=== PATIENT | female | born 1990 | race American Indian/Alaskan Native ===

== ENCOUNTER 2019-02-15 20:36 | Emergency (ER) | payer OTHER ==
--- NOTE | 2019-02-15 21:52 | Event Note ---
ED Screening Note Date of service: 02/15/19 Time: 21:51 ED Screening Note: 28 y o presents with body aches, coughing and fever x 2 days son here with similar symptoms This initial assessment/diagnostic orders/clinical plan/treatment(s) is/are subject to change based on patients health status, clinical progression and re- assessment by fellow clinical providers in the ED. Further treatment and workup at subsequent clinical providers discretion. Patient/guardian urged not to elope from the ED as their condition may be serious if not clinically assessed and managed. Initial orders include:
--- NOTE | 2019-02-16 00:03 | Emergency Department Report ---
- General Chief Complaint: Upper Respiratory Infection Stated Complaint: FLU SX Time Seen by Provider: 02/15/19 23:18 Source: patient Mode of arrival: Ambulatory Limitations: No Limitations - History of Present Illness Initial Comments: This is a pleasant 28-year-old female presents to emergency department with chief complaint of generalized body aches, fever, cough, sore throat, nasal congestion that started today. Patient reports accident temperature is 99.3. She reports 2 episodes of posttussive vomiting. She denies any bloody or bilious vomiting. She denies any known past medical history, current medications known allergies to medications. She has her children with her who has similar symptoms. She rates the severity of her pain is 9 out of 10 described as aching. MD Complaint: fever, cough, sore throat Severity: moderate Severity scale (0 -10): 9 Associated Symptoms: denies other symptoms, fever, myalgias, rhinorrhea, nasal congestion, sore throat, cough, vomiting. denies: diaphoresis, headache, stiff neck, shortness of breath, abdominal pain, nausea, diarrhea, dysuria, rash, confusion, right sweats, weight loss, epistaxis, hoarseness - Related Data Previous Rx's Medication Instructions Recorded Last Taken Type Oseltamivir [Tamiflu] 75 mg PO BID #10 cap 02/16/19 Unknown Rx Allergies Allergy/AdvReac Type Severity Reaction Status Date / Time No Known Allergies Allergy Unverified 02/15/19 21:19 ED Review of Systems ROS: Stated complaint: FLU SX Other details as noted in HPI Comment: All other systems reviewed and negative Constitutional: fever, malaise. denies: chills Eyes: denies: eye pain, eye discharge, vision change ENT: as per HPI, congestion. denies: ear pain, throat pain Respiratory: cough. denies: shortness of breath, wheezing Cardiovascular: denies: chest pain, palpitations Endocrine: no symptoms reported Gastrointestinal: vomiting. denies: abdominal pain, nausea, diarrhea Genitourinary: denies: urgency, dysuria, discharge Musculoskeletal: denies: back pain, joint swelling, arthralgia Skin: denies: rash, lesions Neurological: denies: headache, weakness, paresthesias Psychiatric: denies: anxiety, depression Hematological/Lymphatic: denies: easy bleeding, easy bruising ED Past Medical Hx - Past Medical History Previous Medical History?: No - Surgical History Past Surgical History?: Yes Additional Surgical History: - Family History Family history: no significant - Social History Smoking Status: Never Smoker Substance Use Type: None - Medications Home Medications: Home Medications Medication Instructions Recorded Confirmed Last Taken Type Oseltamivir [Tamiflu] 75 mg PO BID #10 cap 02/16/19 Unknown Rx ED Physical Exam - General Limitations: No Limitations General appearance: alert, in no apparent distress - Head Head exam: Present: atraumatic, normocephalic - Eye Eye exam: Present: normal appearance, PERRL, EOMI - ENT ENT exam: Present: normal exam, normal orophraynx, mucous membranes moist, TM's normal bilaterally, other (clear rhinorrhea) - Neck Neck exam: Present: normal inspection, full ROM. Absent: meningismus (negative kerning and presents), lymphadenopathy - Respiratory Respiratory exam: Present: normal lung sounds bilaterally. Absent: respiratory distress, wheezes, rales, rhonchi, stridor - Cardiovascular Cardiovascular Exam: Present: regular rate, normal rhythm, normal heart sounds. Absent: systolic murmur, diastolic murmur, rubs, gallop - GI/Abdominal GI/Abdominal exam: Present: soft, normal bowel sounds. Absent: distended, tenderness, guarding - Extremities Exam Extremities exam: Present: normal inspection, full ROM. Absent: tenderness (negative Homans sign bilaterally) - Back Exam Back exam: Present: normal inspection, full ROM. Absent: CVA tenderness (R), CVA tenderness (L) - Neurological Exam Neurological exam: Present: alert, oriented X3, normal gait - Psychiatric Psychiatric exam: Present: normal affect, normal mood - Skin Skin exam: Present: warm, dry, intact, normal color. Absent: rash ED Course Vital Signs 02/15/19 02/15/19 21:06 21:51 Temperature 99.3 F 99.3 F Pulse Rate 88 86 Respiratory 18 18 Rate Blood Pressure 115/71 115/71 O2 Sat by Pulse 99 100 Oximetry ED Medical Decision Making - Medical Decision Making Patient presented to the emergency department for evaluation of her flulike symptoms. Patient is nontoxic and in no acute distress. Palmer presents Making Meningitis Unlikely. Lungs Are Clear with No Hypoxia or Tachycardia Making Pneumonia Unlikely. Patient Has Episodes of Vomiting However She Reports This Posttussive Vomiting. Abdominal Exam Is Benign. I Will Treat the Patient with Tamiflu and Anti-Inflammatories and Recommended Rest, Increase Hydration and Follow up with Her Primary Care Doctor in the Next 2-3 Days. However Questions Were Answered. She Verbalizes Understanding of the Diagnosis, Treatment Plan and Follow-Up Instructions. - Differential Diagnosis influenza, otitis media, pneumonia Critical care attestation.: If time is entered above; I have spent that time in minutes in the direct care of this critically ill patient, excluding procedure time. ED Disposition Clinical Impression: Acute viral syndrome Disposition: DC- TO HOME OR SELFCARE Is pt being admited?: No Does the pt Need Aspirin: No Condition: Stable Instructions: Influenza (ED) Prescriptions: Oseltamivir [Tamiflu] 75 mg PO BID #10 cap Referrals: [facility] [Provider Group] - 3-5 Days Forms: Work/School Release Form(ED) Time of Disposition: 00:10
[2019-02-16 01:42] VITALS: BP 106/73
== END 2019-02-16 00:21 | disposition home or self-care (01) ==
LOC: ED 20:36
DX: B34.9 Viral infection, unspecified (principal); R11.10 Vomiting, unspecified; Z79.899 Other long term (current) drug therapy
CPT/HCPCS: 99282

== ENCOUNTER 2020-08-20 17:15 | Emergency (ER) | payer SELFPAY ==
[2020-08-20 17:44] VITALS: BP 108/66
== END 2020-08-20 17:35 ==
LOC: ED 17:15
DX: Z04.1 Encounter for examination and observation following transport accident (principal); Z53.21 Procedure and treatment not carried out due to patient leaving prior to being seen by health care provider; V87.7XXA Person injured in collision between other specified motor vehicles (traffic), initial encounter; Y93.89 Activity, other specified; Y92.488 Other paved roadways as the place of occurrence of the external cause; Y99.8 Other external cause status

== ENCOUNTER 2021-02-16 05:10 | Emergency (ER) | payer MEDICAID ==
[2021-02-16 05:18] VITALS: BP 118/85
[2021-02-16] MEDS ORDERED: ONDANSETRON 4 MG ODT TAB PO ONE (05:36)
[2021-02-16] MEDS ORDERED: AMOXICILLIN/K CLAV 875/125MG TAB PO ONE (05:36)
[2021-02-16] MEDS ORDERED: HYDROcodone/ACETAMINOPHEN 7.5-325MG TAB PO ONE (05:36)
--- NOTE | 2021-02-16 05:49 | Emergency Department Report ---
ED General Adult HPI - General Chief complaint: Dental/Oral Stated complaint: SWOLLEN FACE Source: patient Mode of arrival: Ambulatory Limitations: No Limitations - History of Present Illness Initial comments: Patient is a 30-year-old -[place] female with no past medical history who presents to the ED with complaint of acute onset persistent left maxillary premolar molar toothache with swollen gums for the last 2 days. Patient states that she has been taking Tylenol with codeine tablets, and ibuprofens with no relief. Patient denies fever, chills, nausea, vomiting, sore throat, dizziness, syncope, chest pain, shortness of breath, lightheadedness, cough, neck pain or change in vision. MD Complaint: Left axillary premolar molar toothache; swollen gums -: Sudden, days(s) (2) Location: mouth Radiation: non-radiation Severity scale (0 -10): 6 Quality: aching, sharp Consistency: constant Improves with: none Worsens with: none Associated Symptoms: denies other symptoms, headaches, loss of appetite, other (Facial pain). denies: chest pain, cough, diaphoresis, fever/chills, malaise, nausea/vomiting, shortness of breath, syncope, weakness Treatments Prior to Arrival: NSAID - Related Data Previous Rx's Medication Instructions Recorded Last Taken Type Oseltamivir [Tamiflu] 75 mg PO BID #10 cap 02/16/19 Unknown Rx Clindamycin [Clindamycin CAP] 300 mg PO Q8HR #60 capsule 02/16/21 Unknown Rx Ketorolac [Toradol] 10 mg PO Q8H PRN #20 tablet 02/16/21 Unknown Rx Allergies Allergy/AdvReac Type Severity Reaction Status Date / Time No Known Allergies Allergy Unverified 02/15/19 21:19 ED Review of Systems ROS: Stated complaint: SWOLLEN FACE Other details as noted in HPI Constitutional: denies: chills, fever Eyes: denies: eye pain, eye discharge, vision change ENT: dental pain (Left maxillary premolar molar toothache), other (Swollen, left maxillary gingiva with pain). denies: ear pain, throat pain Respiratory: denies: cough, shortness of breath, wheezing Cardiovascular: denies: chest pain, palpitations Endocrine: no symptoms reported Gastrointestinal: denies: abdominal pain, nausea, vomiting, diarrhea Genitourinary: denies: urgency, dysuria, discharge Musculoskeletal: denies: back pain, joint swelling, arthralgia Skin: denies: rash, lesions Neurological: headache. denies: weakness, paresthesias Psychiatric: denies: anxiety, depression Hematological/Lymphatic: denies: easy bleeding, easy bruising ED Past Medical Hx - Past Medical History Previous Medical History?: No - Surgical History Past Surgical History?: Yes Additional Surgical History: - X2 - Social History Smoking Status: Current Every Day Smoker Substance Use Type: None - Medications Home Medications: Home Medications Medication Instructions Recorded Confirmed Last Taken Type Oseltamivir [Tamiflu] 75 mg PO BID #10 cap 02/16/19 Unknown Rx Clindamycin [Clindamycin CAP] 300 mg PO Q8HR #60 capsule 02/16/21 Unknown Rx Ketorolac [Toradol] 10 mg PO Q8H PRN #20 tablet 02/16/21 Unknown Rx ED Physical Exam - General Limitations: No Limitations General appearance: alert, in no apparent distress - Head Head exam: Present: atraumatic, normocephalic, normal inspection - Eye Eye exam: Present: normal appearance, PERRL, EOMI Pupils: Present: normal accommodation - ENT ENT exam: Present: normal exam, mucous membranes moist, TM's normal bilaterally, normal external ear exam, other (Swollen, severely tender left maxillary gingiva and severely tender left maxillary premolar and molar teeth) - Neck Neck exam: Present: normal inspection, full ROM - Respiratory Respiratory exam: Present: normal lung sounds bilaterally. Absent: respiratory distress, wheezes, rales, rhonchi, chest wall tenderness, accessory muscle use, decreased breath sounds - Cardiovascular Cardiovascular Exam: Present: regular rate, normal rhythm, normal heart sounds. Absent: systolic murmur, diastolic murmur, rubs, gallop - GI/Abdominal GI/Abdominal exam: Present: soft, normal bowel sounds. Absent: tenderness, guarding, rebound, hyperactive bowel sounds, hypoactive bowel sounds, organomegaly - Extremities Exam Extremities exam: Present: normal inspection, full ROM, normal capillary refill - Back Exam Back exam: Present: normal inspection, full ROM. Absent: tenderness, CVA tenderness (R), CVA tenderness (L), muscle spasm, paraspinal tenderness, vertebral tenderness - Neurological Exam Neurological exam: Present: alert, oriented X3, CN II-XII intact, normal gait, reflexes normal - Psychiatric Psychiatric exam: Present: normal affect, normal mood - Skin Skin exam: Present: warm, dry, intact, normal color. Absent: rash ED Course Vital Signs 02/16/21 05:14 Temperature 98.5 F Pulse Rate 66 Respiratory 18 Rate Blood Pressure 118/85 O2 Sat by Pulse 99 Oximetry ED Medical Decision Making - Medical Decision Making This is a 30-year-old -[place] female with no past medical history who presents to the ED with complaint of acute onset persistent left maxillary premolar molar toothache with swollen gums for the last 2 days. Patient states that she has been taking Tylenol with codeine tablets, and ibuprofens with no relief. In the ED, patient is alert and oriented x3 and is not in any distress. Patient is hemodynamically stable. Patient was treated for pain in the ED and given initial oral antibiotics. Patient was there after discharged home on pain medication and oral antibiotics and advised to follow-up with her primary care physician or dentist in 7 to 10 days for reevaluation. Patient was advised return to the ED immediately if symptoms get worse - Differential Diagnosis Dental abscess; gingivitis; dental caries Critical care attestation.: If time is entered above; I have spent that time in minutes in the direct care of this critically ill patient, excluding procedure time. ED Disposition Clinical Impression: Dental caries, Dental abscess, Acute gingivitis Disposition: HOME / SELF CARE / HOMELESS Is pt being admited?: No Does the pt Need Aspirin: No Condition: Stable Instructions: Dental Abscess, [id number], Trench Mouth Additional Instructions: Take medication with food, drink plenty of fluids and follow-up with your primary care physician in 7 to 10 days for reevaluation. Return to the ED i mmediately if symptoms get worse. Prescriptions: Clindamycin [Clindamycin CAP] 300 mg PO Q8HR #60 capsule Ketorolac [Toradol] 10 mg PO Q8H PRN #20 tablet PRN Reason: Pain Referrals: [facility] [Outside] - 7-10 days Time of Disposition: 05:51 Print Language: UPPER SORBIAN
== END 2021-02-16 06:13 | disposition home or self-care (01) ==
LOC: ED 05:10
DX: K02.9 Dental caries, unspecified (principal); K05.00 Acute gingivitis, plaque induced; K04.7 Periapical abscess without sinus
CPT/HCPCS: 99282; J3490; Q0162

== ENCOUNTER 2021-07-13 09:15 | Emergency (ER) | payer MEDICAID ==
[2021-07-13] MEDS ORDERED: ACETAMINOPHEN W/CODEINE 300-30 MG TAB PO ONE (11:38)
[2021-07-13] MEDS ORDERED: ONDANSETRON 4 MG ODT TAB PO ONE (12:32)
--- NOTE | 2021-07-13 12:44 | Ultrasound Report ---
ULTRASOUND OBSTETRIC FIRST TRIMESTER INDICATION / CLINICAL INFORMATION: preg, vag bleeding. Clinical Gestational Age (GA) in weeks, days: LMP is unknown TECHNIQUE: Transabdominal. Endovaginal COMPARISON: None available. FINDINGS: UTERUS: The uterus is enlarged measuring 10.2 x 4.7 x 5.6 cm. Uterine parenchyma is diffusely heterog eneous but no discrete measurable mass is noted. There is no gestational sac identified within the ut erus. Endometrial complex is 6 mm in thickness. There are a few nabothian cysts in the cervical regio n. ADNEXA: Both ovaries are well-visualized and appear unremarkable. The right ovary measures 2.7 x 1.2 x 2.6 cm. The left ovary measures 3.8 x 1.4 x 3.4 cm. FREE FLUID: Small to moderate amount of free fluid is seen throughout the posterior cul-de-sac. ADDITIONAL FINDINGS: None. IMPRESSION: 1. At this time, there is no evidence for gestational sac within the uterus. Please correlate with hC G values. 2. Small to moderate amount of free fluid is seen throughout the pelvis without visible adnexal mass. These findings are nonspecific. Again, please correlate with hCG values. Signer Name: Ruthie Adames MD Signed: 07/13/2021 12:40 PM Workstation Name: [id number]
[2021-07-13 12:53] LABS: Hematocrit 40.7 % (30.3-42.9); Hemoglobin 13.1 gm/dl (10.1-14.3); Mean Corpuscular HGB Conc 32 % (30-34); Mean Corpuscular Volume 93 fl (79-97); Platelet Count 267 K/mm3 (140-440); Red Blood Count 4.39 M/mm3 (3.65-5.03); Red Cell Distribution Width 13.3 % (13.2-15.2)
[2021-07-13 13:18] LABS: Alanine Aminotransferase 32 units/L (7-56); Albumin 4.7 g/dL (3.9-5); Blood Urea Nitrogen 5 mg/dL (7-17); Calcium 9.7 mg/dL (8.4-10.2); Hemolysis Index 8
[2021-07-13 13:25] LABS: BUN/Creatinine Ratio 7
--- NOTE | 2021-07-13 15:01 | Emergency Department Report ---
ED Female HPI - General Chief complaint: Pain General Stated complaint: LEFT HIP PAIN Time Seen by Provider: 07/13/21 11:12 Source: patient Mode of arrival: Ambulatory Limitations: No Limitations - History of Present Illness Initial comments: 31-year-old black female with no past medical history presents to the emergency department for evaluation of vaginal spotting for the past month, abdominal pain, and left hip pain. She states that she has not had a normal period in 3 months, so she took a test this morning she had a positive result. But she states that she has had persistent vaginal spotting for the last month and yesterday she developed some abdominal pain. She denies fever, dysuria, and vomiting, but she states that she has had some nausea. She also complains of left hip pain. She denies injury but states that she has since had persistent pain to the left hip for the last 2 or 3 days unrelieved by Tylenol at home. MD Complaint: vaginal bleeding -: Gradual, month(s) (1) Location: LLQ, RLQ, other (Left hip) Radiation: non-radiating Severity: severe Severity scale (0 -10): 10 Quality: aching Consistency: constant Worsens with: other (Walking) Are you Now?: Yes Associated Symptoms: vaginal bleeding, abdominal pain, nausea/vomiting. denies: vaginal discharge, fever/chills, headaches, loss of appetite, dysuria, hematuria, rash, seizure, shortness of breath, syncope, weakness - Related Data Sexually active: Yes Previous Rx's Medication Instructions Recorded Last Taken Type Oseltamivir [Tamiflu] 75 mg PO BID #10 cap 02/16/19 Unknown Rx Clindamycin [Clindamycin CAP] 300 mg PO Q8HR #60 capsule 02/16/21 Unknown Rx Ketorolac [Toradol] 10 mg PO Q8H PRN #20 tablet 02/16/21 Unknown Rx Ondansetron [Zofran Odt] 4 mg PO Q8HR PRN #12 tab.rapdis 07/13/21 Unknown Rx Prenat 115/Iron Fum/Folic/Dss 1 each PO DAILY #30 tab 07/13/21 Unknown Rx [Pnv-Ferrous Iqulhrix-Ugbg-HR] Allergies Allergy/AdvReac Type Severity Reaction Status Date / Time No Known Allergies Allergy Unverified 02/15/19 21:19 ED Review of Systems ROS: Stated complaint: LEFT HIP PAIN Other details as noted in HPI Comment: All other systems reviewed and negative Constitutional: denies: chills, fever ENT: denies: congestion Respiratory: denies: cough, shortness of breath, SOB with exertion, SOB at rest Cardiovascular: denies: chest pain, palpitations, dyspnea on exertion Gastrointestinal: abdominal pain, nausea. denies: vomiting, diarrhea, hemat emesis, melena, hematochezia Genitourinary: denies: urgency, dysuria, frequency, hematuria, discharge, dyspareunia Musculoskeletal: denies: back pain Skin: denies: rash, lesions Neurological: denies: headache, weakness, abnormal gait ED Past Medical Hx - Surgical History Additional Surgical History: - X2 - Social History Smoking Status: Current Every Day Smoker Substance Use Type: None - Medications Home Medications: Home Medications Medication Instructions Recorded Confirmed Last Taken Type Oseltamivir [Tamiflu] 75 mg PO BID #10 cap 02/16/19 Unknown Rx Clindamycin [Clindamycin CAP] 300 mg PO Q8HR #60 capsule 02/16/21 Unknown Rx Ketorolac [Toradol] 10 mg PO Q8H PRN #20 tablet 02/16/21 Unknown Rx Ondansetron [Zofran Odt] 4 mg PO Q8HR PRN #12 tab.rapdis 07/13/21 Unknown Rx Prenat 115/Iron Fum/Folic/Dss 1 each PO DAILY #30 tab 07/13/21 Unknown Rx [Pnv-Ferrous Abtfmlyz-Ovmb-BW] ED Physical Exam - General Limitations: No Limitations General appearance: alert, in no apparent distress - Head Head exam: Present: atraumatic, normocephalic - Eye Eye exam: Present: normal appearance. Absent: conjunctival injection - Neck Neck exam: Present: normal inspection, full ROM. Absent: tenderness, lymphadenopathy - Respiratory Respiratory exam: Present: normal lung sounds bilaterally. Absent: respiratory distress, wheezes, rales, rhonchi, stridor, chest wall tenderness - Cardiovascular Cardiovascular Exam: Present: regular rate, normal heart sounds - GI/Abdominal GI/Abdominal exam: Present: soft, normal bowel sounds. Absent: distended, tenderness, guarding, rebound, rigid - Extremities Exam Extremities exam: Present: normal inspection - Expanded Lower Extremity Exam Left Hip exam: Present: full ROM, tenderness. Absent: swelling, abrasion, laceration, ecchymosis, deformity, crepidus, dislocation, erythema, shortening Upper Leg exam: Present: normal inspection, tenderness. Absent: full ROM, swelling, abrasion, laceration, ecchymosis, deformity, crepidus, erythema Knee exam: Present: normal inspection. Absent: tenderness Lower Leg exam: Present: normal inspection. Absent: tenderness Neuro vascular tendon exam: Present: no vascular compromise. Absent: pulse deficit, abnormal cap refill, motor deficit, sensory deficit, extremity cold to touch, pallor Gait: Positive: observed and limited by pain - Back Exam Back exam: Present: normal inspection. Absent: CVA tenderness (R), CVA tenderness (L) - Neurological Exam Neurological exam: Present: alert, oriented X3, normal gait - Psychiatric Psychiatric exam: Present: normal affect, normal mood - Skin Skin exam: Present: warm, dry, intact, normal color ED Course Vital Signs 07/13/21 07/13/21 09:45 15:50 Temperature 98.7 F 97.9 F Pulse Rate 81 81 Respiratory 16 20 Rate Blood Pressure 123/89 124/78 [Left] O2 Sat by Pulse 100 99 Oximetry - Reevaluation(s) Reevaluation #1: 07/13/21 15:01 Left hip pain resolved. ED Medical Decision Making - Lab Data Result diagrams: 07/13/21 12:26 07/13/21 12:26 - Radiology Data Radiology results: report reviewed, image reviewed ultrasound: FINDINGS: UTERUS: The uterus is enlarged measuring 10.2 x 4.7 x 5.6 cm. Uterine parenchyma is diffusely heterogeneous but no discrete measurable mass is noted. There is no gestational sac identified within the uterus. Endometrial complex is 6 mm in thickness. There are a few nabothian cysts in the cervical region. ADNEXA: Both ovaries are well-visualized and appear unremarkable. The right ovary measures 2.7 x 1.2 x 2.6 cm. The left ovary measures 3.8 x 1.4 x 3.4 cm. FREE FLUID: Small to moderate amount of free fluid is seen throughout the posterior cul-de-sac. ADDITIONAL FINDINGS: None. IMPRESSION: 1. At this time, there is no evidence for gestational sac within the uterus. Please correlate with hCG values. 2. Small to moderate amount of free fluid is seen throughout the pelvis without visible adnexal mass. These findings are nonspecific. Again, please correlate with hCG values. - Medical Decision Making 31-year-old black female with no past medical history presents to the emergency department for evaluation of vaginal spotting for the past month, abdominal pain, and left hip pain. She states that she has not had a normal period in 3 months, so she took a test this morning she had a positive result. But she states that she has had persistent vaginal spotting for the last month and yesterday she developed some abdominal pain. She denies fever, dysuria, and vomiting, but she states that she has had some nausea. She also complains of left hip pain. She denies injury but states that she has since had persistent pain to the left hip for the last 2 or 3 days unrelieved by Tylenol at home. No gross abnormalities noted on labs. Serum beta-hCG is 1351, but no definitive gestational sac seen on ultrasound. UA negative for UTI. Patient is advised she has possible early gestational IUP but needs to follow-up in the next 3 to 5 days for repeat hCG level and possibly repeat ultrasound. She is advised to conduct herself as if she is definitely and will be discharged home with Zofran as needed for nausea along with vitamins. She is advised to discontinue use of NSAIDs and aspirin and to take Tylenol only as needed for pain. She is advised to drink plenty of p.o. fluids and follow-up with [facility] for further evaluation and management. She is advised to return to the emergency department for any concerning symptoms. She verbalized understanding of and agreement with plan of care. Critical care attestation.: If time is entered above; I have spent that time in minutes in the direct care of this critically ill patient, excluding procedure time. ED Disposition Clinical Impression: Vaginal bleeding affecting early , Left hip pain Disposition: HOME / SELF CARE / HOMELESS Is pt being admited?: No Does the pt Need Aspirin: No Condition: Stable Instructions: How to Use Cold Therapy, [id number], Vaginal Bleeding During , First Trimester, [id number] Additional Instructions: Take medications as prescribed. Follow-up with [facility] in the next week for repeat hCG level, possible repeat ultrasound, and routine care. Return to the emergency department as needed. Prescriptions: Prenat 115/Iron Fum/Folic/Dss [Pnv-Ferrous Zknladef-Klms-TF] 1 each PO DAILY #30 tab Ondansetron [Zofran Odt] 4 mg PO Q8HR PRN #12 tab.rapdis PRN Reason: Nausea And Vomiting Referrals: [facility] [Provider Group] - 3-5 Days Forms: Work/School Release Form(ED) Time of Disposition: 15:31
[2021-07-13 15:15] LABS: Bilirubin,Urine NEG (Negative); Blood,Urine MOD (Negative); Color,Urine Straw (Yellow); Protein,Urine <15 mg/dL mg/dL (Negative); Urobilinogen,Urine < 2.0 mg/dL (<2.0); WBC,Urine < 1.0 /HPF (0.0-6.0)
[2021-07-13 15:57] VITALS: BP 124/78
== END 2021-07-13 15:58 | disposition home or self-care (01) ==
LOC: ED 09:15
DX: O46.91 Antepartum hemorrhage, unspecified, first trimester (principal); O26.891 Other specified pregnancy related conditions, first trimester; M25.552 Pain in left hip; F17.200 Nicotine dependence, unspecified, uncomplicated; Z3A.01 Less than 8 weeks gestation of pregnancy
CPT/HCPCS: 36415; 76801; 76817; 80053; 81001; 84702; 85027; 99284; J3490; Q0162